=== PATIENT | female | born 1995 | race Caucasian/White ===

== ENCOUNTER 2016-08-28 07:25 | Observation (INO) | payer OTHER ==
[~2016-08-28] VITALS: Ht 167.6 cm; Wt 77.1 kg
[~2016-08-28 07:25] MED LIST: MOTRIN PRN PAIN
[2016-08-28] MEDS ORDERED: PRENATAL LOW IR1 TA1 PO (08:10)
[2016-08-28] MEDS ORDERED: NALBUPHINE 10 MG/ML AMP IVP PRN (08:15)
[2016-08-28 08:31] VITALS: BP 98/68
[2016-08-28] MEDS ORDERED: NALBUPHINE HYDROCHLORIDE 10 MG/ML VIAL ONE (09:58)
[2016-08-28] MEDS ORDERED: INFLUENZA VIRUS VACCINE QUAD 0.5 ML SYR IMVAC SCH (22:00)
== END 2016-08-28 14:40 | disposition home or self-care (01) ==
LOC: MLD 07:25
PROVIDERS: ADMIT Obstetrics & Gynecology; ATTEND Obstetrics & Gynecology
DX: O26.893 Other specified pregnancy related conditions, third trimester (principal); M54.9 Dorsalgia, unspecified; Z3A.32 32 weeks gestation of pregnancy
CPT/HCPCS: 76705; 76805; 80305; 81000; 96374; G0378; J2300; Q0092

== ENCOUNTER 2021-12-01 20:23 | Emergency (ER) | payer OTHER ==
[~2021-12-01 20:23] MED LIST changes: -MOTRIN PRN PAIN; +PREN-380 PO
--- NOTE | 2021-12-01 20:30 | NUR ---
CALLED TO TRIAGE, NO ANSWER
--- NOTE | 2021-12-01 21:00 | NUR ---
CALLED TO TRIAGE NO ANSWER
--- NOTE | 2021-12-01 21:22 | NUR ---
CALLED TO TRIAGE NO ANSWER, LWBS
== END 2021-12-01 20:30 | disposition left against medical advice (07) ==
LOC: MED 20:23
DX: J11.1 Influenza due to unidentified influenza virus with other respiratory manifestations (principal); Z53.21 Procedure and treatment not carried out due to patient leaving prior to being seen by health care provider

== ENCOUNTER 2022-09-29 15:09 | Emergency (ER) | payer OTHER ==
[~2022-09-29] VITALS: Ht 162.6 cm; Wt 59.0 kg
[2022-09-29 15:34] VITALS: BP 130/80
[2022-09-29 16:42] LABS: BASOPHILS # (AUTO) 0.1 K/uL (0.00-0.22); BASOPHILS % (AUTO) 0.6 % (0.0-2.0); EOSINOPHILS # (AUTO) 0.1 K/uL (0-0.4); EOSINOPHILS % (AUTO) 0.6 % (0.0-4.0); HEMATOCRIT 43.2 % (36-48); HEMOGLOBIN 14.5 g/dL (12.0-16.0); LYMPHOCYTES # (AUTO) 2.1 K/uL (2.5-16.5); LYMPHOCYTES % (AUTO) 14.7 % (20.5-51.1); MEAN CORPUSCULAR HEMOGLOBIN 30 pg (27-31); MEAN CORPUSCULAR HGB CONC 34 g/dL (33-37); MEAN CORPUSCULAR VOLUME 88.3 fL (80-94); MONOCYTES # (AUTO) 0.7 K/uL (0.8-1.0); MONOCYTES % (AUTO) 5.1 % (1.7-9.3); NEUTROPHILS # (AUTO) 11.4 K/uL (1.8-7.7); PLATELET COUNT (AUTO) 287 K/uL (140-450); RED BLOOD CELL COUNT(AUTO) 4.89 MIL/uL (4.20-5.40); RED CELL DISTRIBUTION WIDTH 14.4 % (11.6-13.7); WHITE BLOOD COUNT (AUTO) 14.4 K/uL (4.8-10.8)
[2022-09-29 16:52] LABS: ANION GAP 14.1 (8-16); CREATININE 0.9 mg/dL (0.6-1.3); POTASSIUM 4.1 mmol/L (3.5-5.1)
--- NOTE | 2022-09-29 18:02 | NUR ---
Patient discharged with v/s stable. Written and verbal after care instructions given and explained. Patient verbalized understanding. Ambulatory with steady gait. All questions addressed prior to discharge. Advised to follow up with PMD.
== END 2022-09-29 18:01 | disposition home or self-care (01) ==
LOC: MED 15:09
DX: R09.1 Pleurisy (principal); R07.9 Chest pain, unspecified
CPT/HCPCS: 36415; 71045; 80048; 85025; 85379; 93005; 99285